=== PATIENT | male | born 1965 | race Caucasian/White ===

== ENCOUNTER 2016-12-07 14:52 | Emergency (ER) | payer SELFPAY ==
[~2016-12-07] VITALS: Ht 177.8 cm; Wt 115.3 kg
[2016-12-07 14:54] VITALS: BP 154/97; TEMP 37.3; O2SAT 95; Ht 177.8 cm; Wt 115.3 kg
[2016-12-07] MEDS ORDERED: SODIUM CHLORIDE 0.9% 1000ML 1,000 ML IV STA (15:17)
--- NOTE | 2016-12-07 15:21 | EMERGENCY ROOM VISIT NOTE ---
History First contact with patient: 15:03 Chief Complaint: ILLNESS Stated Complaint: ILLNESS History of Present Illness The patient is a 51 year old male who presents to the Emergency Room with complaints of fever, chills, malaise. The patient states that his symptoms started 11 days ago. He states that he has subjective fever, chills and sweating. He reports anorexia. The patient states that he has also had very severe headaches but does not have a headache today. He reports neck pain but relates this to his chronic neck pain and degenerative disc disease. He denies any pain currently. He denies any pain in his chest or trouble breathing. He states he has not had any pain in his chest throughout the illness. He denies any shortness of breath or cough. He denies any abdominal pain. He denies any vomiting or diarrhea. He denies any urinary symptoms. He denies any numbness, tingling, weakness in the upper or lower extremities. The patient states that he has had 2 tick bites this year but denies any rash. Review of Systems A 10 system review of systems was completed with positives and pertinent negatives listed in the HPI. Past Medical/Surgical History none Social History Smoking Status: Never Smoker Housing Status: lives with family Occupation Status: employed Current/Historical Medications No Active Prescriptions or Reported Meds Physical Exam Vital Signs Date Time Temp Pulse Resp B/P (MAP) Pulse Ox O2 Delivery O2 Flow Rate FiO2 12/07/16 17:27 68 16 12/07/16 17:22 72 13 12/07/16 17:17 72 23 12/07/16 17:12 72 15 12/07/16 17:07 76 12 12/07/16 17:02 78 12 12/07/16 16:57 71 14 12/07/16 16:52 69 16 12/07/16 16:47 67 24 12/07/16 16:42 66 16 12/07/16 16:37 73 14 12/07/16 16:32 73 18 12/07/16 16:27 73 14 12/07/16 16:22 74 21 12/07/16 16:17 79 18 12/07/16 16:12 71 8 12/07/16 16:07 73 13 12/07/16 16:02 76 16 12/07/16 15:57 81 24 12/07/16 15:52 74 17 12/07/16 15:47 74 17 12/07/16 15:42 79 20 12/07/16 15:37 74 18 12/07/16 15:32 81 25 12/07/16 15:27 90 12 12/07/16 15:22 76 13 12/07/16 15:17 79 28 12/07/16 15:13 77 12/07/16 15:12 75 20 12/07/16 14:54 37.3 91 20 154/97 95 Room Air Physical Exam VITALS: Vitals are noted on the nurse's note and reviewed by myself. Vital signs stable. GENERAL: This is a 51-year-old male, in no acute distress, nondiaphoretic, well- developed well-nourished. SKIN: The skin was without rashes, erythema, edema, or bruising. There is no tenting of the skin. Capillary reflex less than 2 seconds. HEAD: Normocephalic atraumatic. EARS: External auditory canals clear, tympanic membranes pearly villanueva without erythema or effusion bilaterally. EYES: Pupils equal round and reactive to light and accommodation. Conjunctivae without injection, sclerae without icterus. Extraocular movements intact. NOSE: Patent, turbinates without inflammation or discharge. MOUTH: Mucous membranes moist. Tonsils are not enlarged. Pharynx without erythema or exudate. Uvula midline. Airway patent. Tongue does not deviate. NECK: Supple without nuchal rigidity. Cervical spine is nontender. No JVD. HEART: Regular rate and rhythm without murmurs gallops or rubs. LUNGS: Clear to auscultation bilaterally without wheezes, rales or rhonchi. No retractions or accessory muscle use. ABDOMEN: Positive bowel sounds x 4.Soft, nontender, without masses or organomegaly. MUSCULOSKELETAL: No muscle atrophy, erythema, or edema noted. Full range of motion in all extremities. Strength 5/5 throughout. NEURO: Patient was alert and oriented to person place and time. No focal neurological deficits. Medical Decision & Procedures ER Provider Diagnostic Interpretation: CHEST ONE VIEW PORTABLE CLINICAL HISTORY: 51 years-old Male presenting with fever, malaise. TECHNIQUE: Portable upright AP view of the chest was obtained. COMPARISON: None. FINDINGS: Cardiomediastinal silhouette normal. Lungs and pleural spaces clear. Osseous structures normal. Upper abdomen normal. IMPRESSION: 1. No acute cardiopulmonary disease. Laboratory Results 12/07/16 15:35 Red Blood Count 5.13, Mean Corpuscular Volume 86.5, Mean Corpuscular Hemoglobin 30.4, Mean Corpuscular Hemoglobin Concent 35.1, Mean Platelet Volume 11.3 12/07/16 15:35 Test 12/07/16 15:35 12/07/16 17:00 12/07/16 17:10 12/07/16 17:40 White Blood Count 9.09 K/uL (4.8-10.8) Red Blood Count 5.13 M/uL (4.7-6.1) Hemoglobin 15.6 g/dL (14.0-18.0) Hematocrit 44.4 % (42-52) Mean Corpuscular Volume 86.5 fL (80-100) Mean Corpuscular Hemoglobin 30.4 pg (25-34) Mean Corpuscular Hemoglobin Concent 35.1 g/dl (32-36) Platelet Count 140 K/uL (130-400) Mean Platelet Volume 11.3 fL (7.4-10.4) RDW Standard Deviation 45.7 fL (36.4-46.3) RDW Coefficient of Variation 14.3 % (11.5-14.5) Neutrophils % (Manual) 43.0 % Lymphocytes % (Manual) 33.3 % Variant Lymphocytes % (manual) 13.2 % Monocytes % (Manual) 9.6 % Eosinophils % (Manual) 0.9 % Neutrophils # (Manual) 3.91 K/uL (1.4-6.5) Total Absolute Neutrophils 3.91 K/uL (1.4-6.5) Lymphocytes # (Manual) 3.03 K/uL (1.2-3.4) Absolute Variant Lymphocytes 1.20 K/uL Total Absolute Lymphocytes 4.23 K/uL (1.2-3.4) Monocytes # (Manual) 0.87 K/uL (0.11-0.59) Eosinophils # (Manual) 0.08 K/uL (0-0.5) Prothrombin Time 11.4 SECONDS (9.0-12.0) Prothromb Time International Ratio 1.1 (0.9-1.1) Activated Partial Thromboplast Time 32.2 SECONDS (21.0-31.0) Partial Thromboplastin Ratio 1.2 Anion Gap 9.0 mmol/L (3-11) Est Creatinine Clear Calc Drug Dose 117.0 ml/min Estimated GFR () 107.0 Estimated GFR (Non- 92.3 BUN/Creatinine Ratio 14.8 (10-20) Calcium Level 8.7 mg/dl (8.5-10.1) Magnesium Level 2.1 mg/dl (1.8-2.4) Total Bilirubin 0.8 mg/dl (0.2-1) Aspartate Amino Transf (AST/SGOT) 75 U/L (15-37) Alanine Aminotransferase (ALT/SGPT) 114 U/L (12-78) Alkaline Phosphatase 148 U/L (45-117) Total Creatine Kinase 79 U/L (39-308) Creatine Kinase MB 1.2 ng/ml (0.5-3.6) Creatine Kinase MB Ratio 1.5 (0-3.0) Troponin I < 0.015 ng/ml (0-0.045) Total Protein 7.2 gm/dl (6.4-8.2) Albumin 3.5 gm/dl (3.4-5.0) Globulin 3.7 gm/dl (2.5-4.0) Albumin/Globulin Ratio 0.9 (0.9-2) Thyroid Stimulating Hormone (TSH) 3.890 uIu/ml (0.300-4.500) Lyme Disease IgG Antibody NEG (NEG) Lyme Disease IgM Antibody NEG (NEG) Influenza Type A Antigen Neg for Influ A (NEG) Influenza Type B Antigen Neg for Influ B (NEG) Hepatitis B Surface Antigen NEG (NEG) Hepatitis C Antibody NEG (NEG) Urine Color DK YELLOW Urine Appearance TURBID (CLEAR) Urine pH 6.0 (4.5-7.5) Urine Specific [place] 1.040 (1.000-1.030) Urine Protein 2+ (NEG) Urine Glucose (UA) NEG (NEG) Urine Ketones TRACE (NEG) Urine Occult Blood NEG (NEG) Urine Nitrite POS (NEG) Urine Bilirubin NEG (NEG) Urine Urobilinogen NEG (NEG) Urine Leukocyte Esterase TRACE (NEG) Urine WBC (Auto) 5-10 /hpf (0-5) Urine RBC (Auto) 0-4 /hpf (0-4) Urine Hyaline Casts (Auto) 5-10 /lpf (0-5) Urine Epithelial Cells (Auto) >30 /lpf (0-5) Urine Bacteria (Auto) NEG (NEG) Urine Renal Epithelial Cells /lpf (0-5) Urine Pathogenic Casts /lpf (0) Urine Mucus PRESENT (NONE PRSENT) Medications Administered Medications (Trade) Dose Ordered Sig/Jef Route Start Time Stop Time Status Last Admin Dose Admin Sodium Chloride 1,000 ml @ 999 mls/hr Q1H1M STAT IV 12/07/16 15:17 12/07/16 16:17 DC 12/07/16 15:30 999 MLS/HR ECG Indication: weakness Rate (beats per minute): 74 Rhythm: normal sinus Findings: PVC, no acute ischemic change Comparison ECG Date: no prior available ED Course The patient was seen and examined. Previous visits were reviewed. The patient does not have a fever or leukocytosis. He does not have any significant electrolyte abnormality. His liver enzymes are slightly elevated with AST 75, ALT 114 and alkaline phosphatase 148. TSH is within normal limits. Influenza was negative. Lyme titer is negative. Hepatitis panel was pending. Urine dip was negative. Urinalysis is questionable for urinary tract infection versus contamination. The patient does not have any urinary symptoms at all. The urine dip was read as negative. We will await urine culture and treat as indicated by culture results. The patient was hydrated with normal saline solution. EKG does not reveal any arrhythmia or ischemia. The patient does have occasional PVCs. The patient presents to the emergency department with generalized malaise, fatigue, subjective fever. The patient symptoms have been persistent for 11 days. He states that today is the best he has felt. He does report chronic neck pain. He states he also had severe headaches intermittently with this illness. He does not have a headache today. Certainly meningitis is considered in the differential. Given the fact that it has been 11 days since his symptoms started, bacterial meningitis is considered less likely. Viral meningitis is considered but the patient is feeling markedly better. I discussed the possibility of lumbar puncture with him but he declines. The patient does have slight elevation in his liver enzymes. He does not have any abdominal tenderness on examination. He had a negative mono test at [facility] prior to arrival. Hepatitis panel is pending. This could be related to recent viral illness. He was encouraged to have his liver enzymes rechecked his family doctor next week. The patient's symptoms may be related to viral illness. He should return to the ER with any worsening symptoms. Otherwise, he should follow-up with his family doctor next week. The case was discussed with Dr. Cormier who agrees with the assessment and treatment plan Medical Decision DIFFERENTIAL DIAGNOSIS: Aortic dissection, myocarditis, pericarditis, cervical disc disease, costochondritis, herpes zoster, rib fracture, pleuritis, pneumonia , pulmonary embolus, tension pneumothorax, anxiety disorder, somatoform disorder , choledocholithiasis, status, esophagitis, esophageal spasm, esophageal reflux , esophageal rupture, pancreatitis, peptic ulcer disease, cardiac ischemia, ST elevation AL, acute coronary syndrome, arrhythmia, coronary artery vasospasm. vavular heart disease, coronary artery disease, among others. [place] Drug Monitoring Program Search Results: patient reviewed within database Medication Reconcilliation Current Medication List: was personally reviewed by me Blood Pressure Screening Patient's blood pressure: Elevated blood pressure Blood pressure disposition: Elevated BP felt to be situational Impression Primary Impression: Viral illness Additional Impression: Elevated liver enzymes Departure Information Dispostion Home / Self-Care Condition GOOD Prescriptions No Active Prescriptions or Reported Meds Referrals No Doctor, Assigned (PCP) Patient Instructions My [facility] [employer] [facility] Additional Instructions Have your blood work rechecked in one week Rest and increase clear fluids Return with any changing or worsening symptoms Problem Qualifiers
[2016-12-07 15:54] LABS: HEMATOCRIT 44.4 % (42-52); MEAN CELL VOLUME 86.5 fL (80-100); MEAN CORPUSCULAR HEMOGLOBIN 30.4 pg (25-34); MEAN CORPUSCULAR HGB CONC 35.1 g/dl (32-36); MEAN PLATELET VOLUME 11.3 fL (7.4-10.4); PLATELET COUNT 140 K/uL (130-400); RED BLOOD COUNT 5.13 M/uL (4.7-6.1); WHITE BLOOD COUNT 9.09 K/uL (4.8-10.8)
--- NOTE | 2016-12-07 16:02 | DIAGNOSTIC IMAGING REPORT ---
CHEST ONE VIEW PORTABLE CLINICAL HISTORY: 51 years-old Male presenting with fever, malaise. TECHNIQUE: Portable upright AP view of the chest was obtained. COMPARISON: None. FINDINGS: Cardiomediastinal silhouette normal. Lungs and pleural spaces clear. Osseous structures normal. Upper abdomen normal. IMPRESSION: 1. No acute cardiopulmonary disease. Electronically signed by: Mervin Lucero M.D. 12/07/2016 4:00 PM Dictated Date/Time: 12/07/2016 4:00 PM
[2016-12-07 16:04] LABS: INR 1.1 (0.9-1.1); PARTIAL THROMBOPLASTIN RATIO 1.2; PROTHROMBIN TIME (PATIENT) 11.4 SECONDS (9.0-12.0)
[2016-12-07 16:11] LABS: ALT/SGPT 114 U/L (12-78); AST/SGOT 75 U/L (15-37); BLOOD UREA NITROGEN 14 mg/dl (7-18); BUN/CREATININE RATIO 14.8 (10-20); CALCIUM 8.7 mg/dl (8.5-10.1); CARBON DIOXIDE 24 mmol/L (21-32); CHLORIDE 103 mmol/L (98-107); CREATININE 0.95 mg/dl (0.60-1.40); GLUCOSE 115 mg/dl (70-99); MAGNESIUM 2.1 mg/dl (1.8-2.4); POTASSIUM 3.5 mmol/L (3.5-5.1); SODIUM 136 mmol/L (136-145)
[2016-12-07 16:22] LABS: ALB/GLOB RATIO 0.9 (0.9-2); ALKALINE PHOSPHATASE 148 U/L (45-117); CKMB/CK RATIO 1.5 (0-3.0)
[2016-12-07 16:45] LABS: LYME DISEASE AB IGG NEG (NEG); LYME DISEASE AB IGM NEG (NEG)
[2016-12-07 17:13] LABS: COMPLETE YES; EOSINOPHIL % 0.9 %; LYMPH ABS # 3.03 K/uL (1.2-3.4); LYMPHOCYTE % 33.3 %; VARIANT LYMPHOCYTE % 13.2 %
[2016-12-07 17:27] VITALS: PULSE 68
[2016-12-07 18:00] LABS: URINE APPEARANCE TURBID (CLEAR); URINE COLOR DK YELLOW; URINE EPITHELIAL CELL AUTO >30 /lpf (0-5); URINE NITRITE POS (NEG); UROBILINOGEN NEG (NEG); ZZUR CULT IF INDIC CLEAN CATCH NO
[2016-12-07 18:04] LABS: MANUAL MICROSCOPIC REQUIRED? NO; REVIEW REQ? YES
[2016-12-07 18:06] LABS: URINE BILIRUBIN NEG (NEG)
[2016-12-07 18:07] LABS: URINE MUCUS PRESENT (NONE PRSENT)
== END 2016-12-07 18:00 | disposition home or self-care (01) ==
LOC: C.EDB 14:54 → C.EDA 18:00
DX: B34.9 Viral infection, unspecified (principal); R94.5 Abnormal results of liver function studies; M54.2 Cervicalgia; G89.29 Other chronic pain; M50.30 Other cervical disc degeneration, unspecified cervical region